=== PATIENT | female | born 2005 | race Caucasian/White ===

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

== ENCOUNTER 2023-12-03 05:24 | Emergency (ER) | payer SELFPAY ==
[2023-12-03] MEDS ORDERED: Dexamethasone 10 MG/ML VIAL ONE (05:43)
[2023-12-03] MEDS ORDERED: Racepinephrine 2.25% 0.5 ML NEB ONE (05:52)
[2023-12-03] MEDS ORDERED: Ventolin HFA Inhaler 60 PUFF INHALER ONE (05:52)
[2023-12-03] MEDS ORDERED: Acetaminophen 500 MG TAB ONE (05:53)
[2023-12-03 06:21] LABS: #Basophils 0.07 10x3/uL (0.0-0.2); #Eosinophils 0.08 10x3/uL (0.0-0.5); #Monocytes 0.84 10x3/uL (0.0-1.1); #Neutrophils 3.03 10x3/uL (1.5-8.4); %Basophils 1.1 % (0.0-2.0); %Eosinophils 1.2 % (0.0-6.0); %Lymphocytes 39.1 % (18.0-47.0); %Monocytes 12.7 % (0.0-10.0); %Neutrophils 45.7 % (40.0-75.0); Hemoglobin 12.4 g/dL (12.0-15.5); Mean Corpuscular HGB CONC 33.5 g/dL (32.0-36.0); Mean Corpuscular Hemoglobin 28.6 pg (27.0-33.0); Mean Corpuscular Volume 85.3 fL (81.6-98.3); Mean Platelet Volume 11.9 fL (7.4-10.4); Platelet Count 204 10x3/uL (150-450); RBC Distribution Width 13.1 % (11.5-14.5); Red Blood Cell (RBC) Count 4.34 10x6/uL (3.90-5.03); White Blood Cell (WBC) Count 6.6 10x3/uL (3.5-10.5)
[2023-12-03 06:26] LABS: BHCG - Serum Negative (NEGATIVE); Pregs Control Background? CLEAR/WHITE (CLR/WHITE); Pregs Control Bar Appear? YES (CONTROL BAR)
[2023-12-03 06:36] LABS: ALT (SGPT) 21 U/L (8-55); AST (SGOT) 26 U/L (5-34); Albumin 4.1 g/dL (3.5-5.0); Alkaline Phosphatase 45 U/L (40-100); Anion Gap 16 mmol/L (10-20); BUN (Urea Nitrogen) 11 mg/dL (7.0-18.7); Bilirubin, Total 0.2 mg/dL (0.2-1.2); Calc. Creatinine Clearance 0 mL/min (70-130); Calcium 9.4 mg/dL (7.8-10.44); Carbon Dioxide 18 mmol/L (22-29); Chloride 106 mmol/L (98-107); Estimated GFR 107; Globulin 3.4 g/dL (2.4-3.5); Glucose 94 mg/dL (70-105); Potassium 4.1 mmol/L (3.5-5.1); Protein, Total 7.5 g/dL (6.0-8.3); Sodium 136 mmol/L (136-145)
[2023-12-03 06:42] LABS: Troponin I Less than 0.010 ng/mL (< 0.028)
== END 2023-12-03 06:57 | disposition home or self-care (01) ==
LOC: CSHERS 05:24
DX: J45.901 Unspecified asthma with (acute) exacerbation (principal); I10 Essential (primary) hypertension; Z55.6 Problems related to health literacy; Z79.51 Long term (current) use of inhaled steroids
CPT/HCPCS: 70360; 71045; 80053; 84484; 84703; 85025; 85379; 87428; 93005; 94640; 94664; 94760; J1100

== ENCOUNTER 2024-12-20 14:22 | Emergency (ER) | payer SELFPAY ==
[2024-12-20] MEDS ORDERED: Methocarbamol 500 MG TAB ONE (15:08)
[2024-12-20] MEDS ORDERED: HYDROcodone/Acetaminophen 5/325 mg Tablet ONE ×2 (15:34→16:56)
== END 2024-12-20 17:41 | disposition home or self-care (01) ==
LOC: CSHERS 14:22
DX: M54.12 Radiculopathy, cervical region (principal); F17.290 Nicotine dependence, other tobacco product, uncomplicated
CPT/HCPCS: 96372; 99283; J2919

== ENCOUNTER 2024-12-21 18:39 | Emergency (ER) | payer SELFPAY ==
[~2024-12-21 18:39] MED LIST: Iopamidol 370 76% 100 ML VIAL ONE
[2024-12-21] MEDS ORDERED: Naproxen 500 MG TAB ONE (20:45)
[2024-12-21] MEDS ORDERED: Orphenadrine Citrate 60 MG/2 ML VIAL ONE (20:45)
[2024-12-21] MEDS ORDERED: HYDROmorphone 0.5 MG/0.5 ML SYRINGE ONE ×2 (21:37→23:23)
== END 2024-12-22 01:55 | disposition home or self-care (01) ==
LOC: CSHERS 18:39
DX: M54.12 Radiculopathy, cervical region (principal); F17.290 Nicotine dependence, other tobacco product, uncomplicated
CPT/HCPCS: 71275; 72125; 96372; 96374; 96375; 96376; J1171; J2060; J2360; Q9967